=== PATIENT | female | born 1940 | race Caucasian/White ===

== ENCOUNTER → 2018-08-17 12:22 | Outpatient (CLI) | payer MEDICARE, OTHER ==
[2014-12-06 12:12] VITALS: BMI 29.0
[~2018-08-17 12:22] MED LIST: ADVIL100 M1; AMBIEN5 MG; ASCORBIC ACID500 MG PO; ASPIRIN325 MG PO; ATIVAN0.5 MG; BENEFIBER1 PKT; CALCIUM 600+D T1 TA1 PO; CLARITIN 10 MG10 MG; CRANBERRY475 MG PO; GINGER500 MG PO; HYDROCODON-ACE1 EAC7 PO; KRILL OIL 1,001 EAC1 PO; PRILOSEC20 MG PO; PROBIOTIC1 EAC1 PO; ZITHROMAX250 MG PO; [UNRECOGNIZED DRUG - OTHER]
== END | disposition home or self-care (01) ==
LOC: D.RT 12:22
DX: R06.09 Other forms of dyspnea (principal)

== ENCOUNTER → 2018-12-23 12:29 | Outpatient (CLI) | payer MEDICARE, OTHER ==
[2014-12-06 12:12] VITALS: BMI 29.0
== END | disposition home or self-care (01) ==
LOC: D.LAB 12:29 → D.CT 14:00
PROVIDERS: ATTEND Internal Medicine Pulmonary Disease
DX: J30.1 Allergic rhinitis due to pollen (principal)